=== PATIENT | male | born 1945 | race Caucasian/White ===

== ENCOUNTER 2016-12-09 06:09 | Observation (INO) | payer OTHER ==
[~2016-12-09] VITALS: Ht 177.8 cm; Wt 70.3 kg
--- NOTE | 2016-12-09 06:25 | NUR ---
PT BIBA FOR C/O LOWER BACK PAIN. PER MEDICS, PT TOOK NORCO PRIOR TO GOING TO BED LAST NIGHT. PT ATTEMPTED TO GET OUT OF BED LAST NIGHT AND FELL. PT AROUSABLE TO PHYSICAL STIMULI. PT WILL WAKE UP AND THEN FALL BACK ASLEEP. RESPIRATIONS EVEN AND UNLABORED. BED IN LOW POSITION. CALL LIGHT WITHIN REACH. IN FULL VIEW OF NURSES STATION.
--- NOTE | 2016-12-09 07:09 | NUR ---
X-RAY AT BEDSIDE
[2016-12-09 07:18] LABS: CALCIUM 8.6 mg/dL (8.5-10.1); CARBON DIOXIDE 28.9 mmol/L (21-32); CHLORIDE SERUM 106 mmol/L (98-107); CREATININE SERUM 1.5 mg/dL (0.7-1.3); GLUCOSE SERUM 128 mg/dL (74-106); POTASSIUM SERUM 3.8 mmol/L (3.5-5.1); SODIUM SERUM 140 mmol/L (136-145)
[2016-12-09 07:20] LABS: BASOPHIL % 0.1 % (0-2); PLATELET COUNT 216 x10^3mcL (130-400); RED CELL DISTRIBUTION WIDTH 14.5 % (11.5-14.5)
--- NOTE | 2016-12-09 07:23 | NUR ---
REPORT TAKEN FROM GIOVANI MENDOZA TO ASSUME CARE OF PT. UPON ENTERING THE ROOM, PT IS SLEEPING ON GURNEY PT AROUSEABLE TO STIMULI, PTS BREATHING E/U, SKIN WARM AND DRY TO TOUCH. PT REMAINS ON [employer] FARMING SUPERVISOR WITHIN VIEW OF THE NURSES STATION, WILL CONTINUE TO MONITOR
[2016-12-09 07:24] LABS: ALBUMIN 3.5 g/dL (3.4-5.0); ALKALINE PHOSPHATASE 122 U/L (46-116); ALT/SGPT 36 U/L (16-63); AST/SGOT 32 U/L (15-37); BILIRUBIN TOTAL 0.38 mg/dL (0.20-1.00); CHOLESTEROL 123 mg/dL (<200); TOTAL PROTEIN, SERUM 6.1 g/dL (6.4-8.2)
--- NOTE | 2016-12-09 07:28 | NUR ---
EKG IN PROGRESS AT BEDSIDE.
--- NOTE | 2016-12-09 07:43 | NUR ---
PT TO CT SCAN VIA [facility]
--- NOTE | 2016-12-09 07:53 | NUR ---
PT RETURNED FROM CT SCAN VIA GURNEY, PLACED BACK ON WOOD CABINET FINISHER WITH CALL LIGHT IN REACH AND PT HAS NORMAL SALINE INFUSING WIDE OPEN PER MD ORDERS.
[2016-12-09 07:59] LABS: AMPHETAMINE QUAL UR POSITIVE (NEG <=1000); UA SPECIFIC GRAVITY 1.015 (1.005-1.035); microscopic required? YES; urine erythrocyte NEGATIVE (NEGATIVE)
--- NOTE | 2016-12-09 08:25 | NUR ---
PT MEDICATED WITH 2MG NALOXONE IVP PER MD ORDERS. PT HAD NO REACTION TO MEDICATION. PT REMAINS ON VOLLEYBALL REFEREE WITH CALL LIGHT IN REACH
--- NOTE | 2016-12-09 09:28 | NUR ---
REPORT GIVEN TO RAMIN RN TO ASSUME CARE OF PT PTS PRIMARRY NURSE, ALL QUESTIONS AND CONCERNS ANSWERED.
[2016-12-09 10:14] LABS: FREE T4 1.13 ng/dL (0.76-1.46); FREE THYROXINE INDEX 1.8 ug/dL (1.4-4.5); T4(THYROXINE) 5.3 ug/dL (4.7-13.3)
[2016-12-09 10:19] LABS: T3 TOTAL 0.72 ng/mL
[2016-12-09 10:21] VITALS: BP 115/59
[2016-12-09 11:24] LABS: PHOSPHOROUS 3.4 mg/dL (2.5-4.9)
[2016-12-09 11:25] LABS: CHOLESTEROL/HDL RATIO 1.9
--- NOTE | 2016-12-09 12:48 | NUR ---
AT 1000 - RECEIVED PATIENT FROM ER NURSE. PATIENT ASSISTED FROM GURNEY TO BED; AMBULATED SLOWLY WITH ASSISTANCE. SETTLED IN BED, ORIENTED TO SURROUNDINGS AND PLACED ON CARDIAC MONITORING TELE # 4. ADMITTED WITH ALOC, C/O BACK PAIN SP FALL AT HOME. PATIENT IS VERY DROWSY BUT ABLE TO BE ROUSED. HE IS ABLE TO ANSWER QUESTIONS BUT FALLS ASLEEP WHILE TRYING TO ANSWER QUESTIONS. ORIENTED TO PERSON, TIME AND SITUATION. UNABLE TO OBTAIN FULL HISTORY FROM PATIENT, DUE TO ALOC. VS WNL. AFEBRILE. RESPIRATIONS REGULAR WITH O2 96% ON ROOM AIR. NOTED SOFT TISSUE SWELLING OF L KNEE AND DRY SCABS ON LFA. 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 AT 1015 - ULTRASOUND AT BEDSIDE FOR COROTID U/S. AT 1025 - COMMENCED IV INFUSION OF NS AT 120 ML/HR. PATIENT CONTINUES SLEEPING. MONITORING CLOSELY.
[2016-12-09 12:59] VITALS: BP 106/53
--- NOTE | 2016-12-09 14:06 | NUR ---
PATIENT NOW FULLY AWAKE AND ORIENTED X 4. ROLLING IN BED AND CALLING OUT - "I CAN'T STAND THE PAIN". C/O SEVERE PAIN IN BOTH LEGS AND ARMS. SPOKE WITH DR CAIN. SHE WILL COME TO SEE PATIENT NOW.
[2016-12-09] MEDS ORDERED: NOR10 PO (14:34)
[2016-12-09] MEDS ORDERED: OXYBUTYNIN CHLOR5 MG PO (14:36)
[2016-12-09] MEDS ORDERED: NOR10T PO (14:36)
[2016-12-09] MEDS ORDERED: BACLOFEN10 MG PO (14:37)
[2016-12-09] MEDS ORDERED: NEU300 PO (14:38)
[2016-12-09] MEDS ORDERED: COLCHICINE0.6 M2 PO (14:40)
[2016-12-09] MEDS ORDERED: TERAZOSIN HCL5 MG PO (14:41)
[2016-12-09] MEDS ORDERED: RESTORIL15 MG PO (14:42)
[2016-12-09] MEDS ORDERED: DILANTIN100 MG PO (14:43)
[2016-12-09] MEDS ORDERED: HYDROCHLOROTH12.5 M3 PO (14:46)
--- NOTE | 2016-12-09 15:39 | NUR ---
AT 1420 - DR CAIN AT BEDSIDE. RECEIVED NEW ORDERS. PATIENT REQUESTED THAT I CALL [facility], [facility] TEL; [phone] TO NOTIFY THEM THAT HE IS IN [facility]. DONE. AT 1425 - MEDICATED WITH IV TORADOL AND DECADRON PER EMAR. K-PAD APPLIED TO L KNEE. AT 1440 - MEDICATED WITH IV ATIVAN 1 MG PER EMAR/NEW ORDER. PATIENT SPOKE WITH BANK SALES AND SERVICE MANAGER AT [facility]. AT 1515 - PATIENT APPEARS MORE COMFORTABLE AT THIS TIME.
--- NOTE | 2016-12-09 16:37 | NUR ---
LFA PHOTO DOCUMENTED.
--- NOTE | 2016-12-09 16:46 | NUR ---
RECEIVED CALL FROM PATIENT'S [facility]EP[facility] - TEL: . PATIENT HAS HAD BACK X-RAY.
[2016-12-09 18:52] VITALS: BP 111/60
--- NOTE | 2016-12-09 19:04 | NUR ---
PATIENT HAS BEEN SLEEPING SINCE RECEIVING PAIN MEDICATION, BUT ROUSABLE. WHEN AWAKE PATIENT IS ORIENTED. PATIENT MOVING IN BED. VSS AND WNL. IV INFUSION REMAINS AT 120ML/HR. K-PAD TO L KNEE. HAS TAKEN PO FLUIDS BUT HAS NOT EATEN. WILL ENDORSE CARE TO NIGHT NURSE.
--- NOTE | 2016-12-09 20:15 | NUR ---
PT. SLEEPING, EASY TO WAKE. ORIENTED X4 AND APPROPRIATE WHEN AWAKENED. ABLE TO FOLLOW COMMANDS. SPEECH SLOW AT THIS TIME. BREATH SOUNDS CLEAR THROUGHOUT LUNG BOWEN, RESP. EVEN, UNLABORED. NSR W/ 1ST DEGREE BBB. DENIES CHESTPAIN OR DISCOMFORT. IVF NS INFUSING WELL. LT. KNEE SWOLLEN. PEDAL PULSES MODERATE. ABLE TO MOVE ALL EXTREMITIES. ABD. SOFT AND ROUND, BOWEL SOUNDS ACTIVE. DENIES NAUSEA, DENIES ABD. PAIN. LFA W/ DRIED, SCABBED AREAS, SKYLER. NO DRAINAGE NOTED. CALL LIGHT WITHIN REACH.
--- NOTE | 2016-12-09 23:35 | NUR ---
PT. C/O PAIN IN LT. HAND. RECEIVED PRN NORCO EARLIER BUT IS COMPLAINING THAT PAIN IS GETTING WORST. PRN TORDOL GIVEN. WILL MONITOR EFFECTIVENESS FOR PAIN RELIEF.
--- NOTE | 2016-12-10 04:07 | NUR ---
PT. BETWEEN SLEEP AND WAKE THROUGHOUT NIGHT. DOZING NOW. IVF INFUSING WELL. CALL LIGHT REMAINS WITHIN REACH.
[2016-12-10 06:07] LABS: BASOPHIL % 0.3 % (0-2); PLATELET COUNT 204 x10^3mcL (130-400)
[2016-12-10 06:34] LABS: CARBON DIOXIDE 26.5 mmol/L (21-32); CHLORIDE SERUM 109 mmol/L (98-107); CREATININE SERUM 1.4 mg/dL (0.7-1.3); GLUCOSE SERUM 105 mg/dL (74-106); MAGNESIUM 2.1 mg/dL (1.8-2.4); PHOSPHOROUS 3.2 mg/dL (2.5-4.9); POTASSIUM SERUM 4.4 mmol/L (3.5-5.1); SODIUM SERUM 140 mmol/L (136-145)
[2016-12-10 06:47] VITALS: BP 105/57
--- NOTE | 2016-12-10 07:41 | NUR ---
RECEIVED PT LAYING IN BED AWAKE AND ALERT. AAOx4. ID BAND ON AND VERIFIED. IV SITE PATENT AND INFUSING WELL, IV TUBING LABELLED PROPERLY. INFORMATION BOARD UPDATED. DENIES PAIN AT THIS TIME. NO APPARENT SIGNS OF ACUTE DISTRESS. ANXIOUS TO RETURN HOME. EXPLAINED TO PT. THAT THE DOCTOR WOULD BE IN TO DISCUSS THE TREATMENT PLAN TO HIM AND DECIDE WHEN IT IS SAFE FOR HIM TO LEAVE. PT APPEARED RECEPTIVE. CALL LIGHT WITHIN REACH. ENCOURAGED TO ASK FOR ASSISTANCE. WILL CONTINUE TO MONITOR
[2016-12-10] MEDS ORDERED: FLORASTOR1 CAP PO (08:18)
[2016-12-10] MEDS ORDERED: LEVAQUIN250 M1 PO (08:18)
[2016-12-10 08:41] VITALS: BP 105/57
--- NOTE | 2016-12-10 08:58 | NUR ---
PT ATTEMPTED TO LEAVE THE FACILITY AMA. AFTER PT TEACHING AND ENCOURAGEMENT, THE PT WAITED TO SPEAK TO DR. MAST WHO ULTIMATELY DISCHARGED HIM. WENT OVER DISCHARGE PAPERWORK AND PT TEACHING ABOUT MEDICATION AND VISIT REPORT. IV ACCESS REMOVED, PT TOLERATED IT WELL. JUICE PACKAGING MACHINES SETTER NOTIFIED. CAB RIDE ARRANGED. ARRANGED FOR A LOANER WALKER FOR THE PT TO AMBULATE TO HIS APARTMENT, AND THE RIPENING ROOM ATTENDANT WILL RETURN THE WALKER. PT DENIES PAIN. NO APPARENT SIGNS OF ACUTE DISTRESS NOTED. PT WAS ESCORTED DOWN TO THE HOSPITAL ENTRANCE AND INTO [place] BY 2 NURSING STAFF. TELE BOX RETURNED TO CRUTCHER HELPER STATION
== END 2016-12-10 09:00 | disposition home or self-care (01) | DRG 917 ==
LOC: ED 06:09 → DU 08:49
PROVIDERS: Emergency Medicine; ADMIT Family Medicine
DX: T43.621A Poisoning by amphetamines, accidental (unintentional), initial encounter (principal); G92 Toxic encephalopathy; N17.0 Acute kidney failure with tubular necrosis; N39.0 Urinary tract infection, site not specified; I95.9 Hypotension, unspecified; M54.5 Low back pain; G89.29 Other chronic pain; G62.9 Polyneuropathy, unspecified; G40.909 Epilepsy, unspecified, not intractable, without status epilepticus; N40.1 Benign prostatic hyperplasia with lower urinary tract symptoms; R33.8 Other retention of urine; D64.9 Anemia, unspecified; M10.9 Gout, unspecified; F15.10 Other stimulant abuse, uncomplicated; F17.210 Nicotine dependence, cigarettes, uncomplicated; Z79.891 Long term (current) use of opiate analgesic; Z68.22 Body mass index [BMI] 22.0-22.9, adult; Y92.003 Bedroom of unspecified non-institutional (private) residence as the place of occurrence of the external cause
CPT/HCPCS: 80307; 83880; 84439; G0378; G0480; J0696; J1100; J1165; J1885; J2060; J2310; J7030; Q0092

== ENCOUNTER 2017-10-31 11:09 | Inpatient (IN) | payer OTHER ==
[~2017-10-31] VITALS: Ht 175.3 cm; Wt 81.7 kg
[~2017-10-31 11:09] MED LIST: BACLOFEN10 MG PO; COLCHICINE0.6 M2 PO; DILANTIN100 MG PO; FLORASTOR1 CAP PO; HYDROCHLOROTH12.5 M3 PO; LEVAQUIN250 M1 PO; NEU300 PO; NOR10 PO; NOR10T PO; OXYBUTYNIN CHLOR5 MG PO; RESTORIL15 MG PO; TERAZOSIN HCL5 MG PO
[2017-10-31 12:44] LABS: BASOPHIL % 0.5 % (0-2); PLATELET COUNT 302 x10^3mcL (130-400)
[2017-10-31 12:45] LABS: RED CELL DISTRIBUTION WIDTH 17.8 % (11.5-14.5)
[2017-10-31 15:02] LABS: CALCIUM 9.5 mg/dL (8.5-10.1); CARBON DIOXIDE 20.9 mmol/L (21-32); CHLORIDE SERUM 99 mmol/L (98-107); CREATININE SERUM 2.8 mg/dL (0.7-1.3); GLUCOSE SERUM 113 mg/dL (74-106); POTASSIUM SERUM 4.3 mmol/L (3.5-5.1); SODIUM SERUM 134 mmol/L (136-145)
[2017-10-31 15:14] LABS: ALBUMIN 3.4 g/dL (3.4-5.0); ALKALINE PHOSPHATASE 127 U/L (46-116); ALT/SGPT 27 U/L (16-63); AST/SGOT 27 U/L (15-37); BILIRUBIN TOTAL 0.24 mg/dL (0.20-1.00)
[2017-10-31] MEDS ORDERED: DILAUDID2 MG PO (16:16)
[2017-10-31] MEDS ORDERED: MORPHINE SULFAT15 MG PO (16:16)
[2017-10-31] MEDS ORDERED: TRAZODONE50 M1 PO (16:17)
[2017-10-31] MEDS ORDERED: D3-50001 TAB PO (16:17)
[2017-10-31] MEDS ORDERED: HYDRALAZINE HY100 MG PO (16:18)
[2017-10-31] MEDS ORDERED: CLARITIN10 MG PO (16:18)
[2017-10-31] MEDS ORDERED: NATURAL IRON65 MG PO (16:18)
[2017-10-31] MEDS ORDERED: SENOKOT8.6 MG PO (16:19)
[2017-10-31] MEDS ORDERED: ALLOPURINOL100 MG PO (16:19)
[2017-10-31] MEDS ORDERED: NEU300 PO (16:19)
[2017-10-31] MEDS ORDERED: KEPPRA500 MG PO (16:19)
[2017-10-31] MEDS ORDERED: DOXYCYCLINE HY100 MG PO (16:20)
[2017-10-31] MEDS ORDERED: TERAZOSIN HYDROC5 MG PO (16:20)
[2017-10-31] MEDS ORDERED: LEVOTHYROXINE0.05 M2 PO (16:20)
[2017-10-31] MEDS ORDERED: GOOD SENSE OMEP20 MG PO (16:20)
[2017-10-31] MEDS ORDERED: COLCHICINE0.6 M1 PO (16:21)
[2017-10-31 16:30] LABS: T3 TOTAL 0.56 ng/mL
[2017-10-31 16:53] VITALS: BP 120/60
[2017-10-31 17:07] LABS: CHOLESTEROL/HDL RATIO 2.2; MAGNESIUM 1.6 mg/dL (1.8-2.4); PHOSPHOROUS 4.4 mg/dL (2.5-4.9)
[2017-10-31 17:18] LABS: FREE T4 1.33 ng/dL (0.76-1.46); T4(THYROXINE) 5.3 ug/dL (4.7-13.3)
[2017-10-31 22:01] VITALS: BP 131/65
[2017-11-01 04:34] LABS: microscopic required? NO
[2017-11-01 05:18] LABS: urine erythrocyte NEGATIVE (NEGATIVE)
[2017-11-01 05:22] LABS: AMPHETAMINE QUAL UR POSITIVE (NEG <=1000)
[2017-11-01 06:02] VITALS: BP 111/56
[2017-11-01 08:09] LABS: CALCIUM 9.1 mg/dL (8.5-10.1); CHLORIDE SERUM 102 mmol/L (98-107); CREATININE SERUM 2.6 mg/dL (0.7-1.3); GLUCOSE SERUM 104 mg/dL (74-106); MAGNESIUM 1.7 mg/dL (1.8-2.4); PHOSPHOROUS 4.8 mg/dL (2.5-4.9); POTASSIUM SERUM 4.4 mmol/L (3.5-5.1); SODIUM SERUM 135 mmol/L (136-145)
[2017-11-01 08:14] LABS: BASOPHIL % 0.2 % (0-2); PLATELET COUNT 275 x10^3mcL (130-400); RED CELL DISTRIBUTION WIDTH 17.4 % (11.5-14.5)
[2017-11-01 09:43] VITALS: BP 119/56
[2017-11-01 13:02] VITALS: BP 115/63
[2017-11-01 18:06] VITALS: BP 126/61
[2017-11-01 21:45] VITALS: BP 111/62
[2017-11-02 06:03] LABS: BASOPHIL % 0.6 % (0-2); PLATELET COUNT 258 x10^3mcL (130-400)
[2017-11-02 06:45] LABS: CALCIUM 8.7 mg/dL (8.5-10.1); CARBON DIOXIDE 28.1 mmol/L (21-32); CHLORIDE SERUM 103 mmol/L (98-107); CREATININE SERUM 2.6 mg/dL (0.7-1.3); GLUCOSE SERUM 89 mg/dL (74-106); MAGNESIUM 1.7 mg/dL (1.8-2.4); POTASSIUM SERUM 4.9 mmol/L (3.5-5.1); SODIUM SERUM 137 mmol/L (136-145)
[2017-11-02 09:22] VITALS: BP 119/55
[2017-11-02 13:20] VITALS: BP 119/60
[2017-11-02 16:50] VITALS: BP 119/60
[2017-11-02 17:39] VITALS: BP 108/50
== END 2017-11-02 18:40 | DRG 559 ==
LOC: ED 11:09 → DU 15:29
PROVIDERS: Emergency Medicine; Family Medicine
DX: T84.54XA Infection and inflammatory reaction due to internal left knee prosthesis, initial encounter (principal); N17.0 Acute kidney failure with tubular necrosis; E87.1 Hypo-osmolality and hyponatremia; M86.8X8 Other osteomyelitis, other site; I42.2 Other hypertrophic cardiomyopathy; I10 Essential (primary) hypertension; Z96.652 Presence of left artificial knee joint; Z96.651 Presence of right artificial knee joint; Y79.2 Prosthetic and other implants, materials and accessory orthopedic devices associated with adverse incidents; Y83.4 Other reconstructive surgery as the cause of abnormal reaction of the patient, or of later complication, without mention of misadventure at the time of the procedure; M54.5 Low back pain; F41.9 Anxiety disorder, unspecified; F32.9 Major depressive disorder, single episode, unspecified; E86.0 Dehydration; E03.9 Hypothyroidism, unspecified; J44.9 Chronic obstructive pulmonary disease, unspecified; G89.4 Chronic pain syndrome; N40.0 Benign prostatic hyperplasia without lower urinary tract symptoms; M10.9 Gout, unspecified; F17.210 Nicotine dependence, cigarettes, uncomplicated; Z60.2 Problems related to living alone; K59.00 Constipation, unspecified; G62.9 Polyneuropathy, unspecified; E83.42 Hypomagnesemia; Z79.899 Other long term (current) drug therapy; Y92.009 Unspecified place in unspecified non-institutional (private) residence as the place of occurrence of the external cause
CPT/HCPCS: 83880; 84439; 97110-GP; 97530-GP; J0780; J2405; J3010; J7030; Q0092

== ENCOUNTER 2018-01-09 17:31 | Emergency (ER) | payer OTHER ==
[~2018-01-09] VITALS: Ht 172.7 cm; Wt 87.1 kg
[~2018-01-09 17:31] MED LIST changes: +ALLOPURINOL100 MG PO; +CLARITIN10 MG PO; +COLCHICINE0.6 M1 PO; +D3-50001 TAB PO; +DILAUDID2 MG PO; +DOXYCYCLINE HY100 MG PO; +GOOD SENSE OMEP20 MG PO; +HYDRALAZINE HY100 MG PO; +KEPPRA500 MG PO; +LEVOTHYROXINE0.05 M2 PO; +MORPHINE SULFAT15 MG PO; +NATURAL IRON65 MG PO; +SENOKOT8.6 MG PO; +TERAZOSIN HYDROC5 MG PO; +TRAZODONE50 M1 PO
[2018-01-09 18:02] VITALS: Ht 172.7 cm; Wt 87.1 kg
[2018-01-09 22:27] VITALS: BP 149/80
== END 2018-01-09 22:27 | disposition home or self-care (01) ==
LOC: ED 17:31
DX: M54.42 Lumbago with sciatica, left side (principal); G89.29 Other chronic pain; M25.562 Pain in left knee; J45.909 Unspecified asthma, uncomplicated; I10 Essential (primary) hypertension
CPT/HCPCS: J1885; Q0092

== ENCOUNTER 2018-11-11 22:47 | Emergency (ER) | payer OTHER ==
[~2018-11-11] VITALS: Ht 172.7 cm; Wt 95.3 kg
[2018-11-11 22:53] VITALS: Ht 172.7 cm; Wt 95.3 kg
[2018-11-11] MEDS ORDERED: KEPPRA500 MG PO (23:37)
[2018-11-11] MEDS ORDERED: FLUOXETINE HYDR20 M2 PO (23:39)
[2018-11-11] MEDS ORDERED: METOPROLOL SUCC50 M2 PO (23:42)
[2018-11-11] MEDS ORDERED: PAROXETINE HCL20 M1 PO (23:42)
[2018-11-12 00:22] VITALS: BP 133/78
== END 2018-11-12 00:18 | disposition home or self-care (01) ==
LOC: ED 22:47
DX: S80.02XA Contusion of left knee, initial encounter (principal); M25.512 Pain in left shoulder; M25.552 Pain in left hip; J45.909 Unspecified asthma, uncomplicated; I10 Essential (primary) hypertension; G89.29 Other chronic pain; F41.9 Anxiety disorder, unspecified; F32.9 Major depressive disorder, single episode, unspecified; Z98.890 Other specified postprocedural states; W18.11XA Fall from or off toilet without subsequent striking against object, initial encounter; Y93.89 Activity, other specified; Y92.091 Bathroom in other non-institutional residence as the place of occurrence of the external cause; Y99.8 Other external cause status
CPT/HCPCS: J3010

== ENCOUNTER 2018-11-12 18:22 | Emergency (ER) | payer OTHER ==
[~2018-11-12] VITALS: Ht 175.3 cm; Wt 86.2 kg
[~2018-11-12 18:22] MED LIST changes: +FLUOXETINE HYDR20 M2 PO; +METOPROLOL SUCC50 M2 PO; +PAROXETINE HCL20 M1 PO
[2018-11-12 18:33] VITALS: Ht 175.3 cm; Wt 86.2 kg
[2018-11-12 19:40] VITALS: BP 143/80
== END 2018-11-12 19:41 | disposition home or self-care (01) ==
LOC: ED 18:22
DX: G89.29 Other chronic pain (principal); M25.562 Pain in left knee; J45.909 Unspecified asthma, uncomplicated; I10 Essential (primary) hypertension; F41.9 Anxiety disorder, unspecified; F32.9 Major depressive disorder, single episode, unspecified; Z98.890 Other specified postprocedural states
CPT/HCPCS: J3010

== ENCOUNTER 2018-11-16 15:40 | Emergency (ER) | payer OTHER ==
[~2018-11-16] VITALS: Ht 175.3 cm; Wt 87.1 kg
[2018-11-16 15:48] VITALS: Ht 175.3 cm; Wt 87.1 kg
[2018-11-16 18:22] VITALS: BP 133/56
== END 2018-11-16 18:22 | disposition home or self-care (01) ==
LOC: ED 15:40
DX: S49.91XA Unspecified injury of right shoulder and upper arm, initial encounter (principal); J45.909 Unspecified asthma, uncomplicated; I10 Essential (primary) hypertension; M10.9 Gout, unspecified; F32.9 Major depressive disorder, single episode, unspecified; F41.9 Anxiety disorder, unspecified; G89.29 Other chronic pain; W01.0XXA Fall on same level from slipping, tripping and stumbling without subsequent striking against object, initial encounter; Y93.89 Activity, other specified; Y92.89 Other specified places as the place of occurrence of the external cause; Y99.8 Other external cause status
CPT/HCPCS: J1885; Q0092

== ENCOUNTER 2018-11-22 03:51 | Inpatient (IN) | payer OTHER ==
[~2018-11-22] VITALS: Ht 175.3 cm; Wt 89.8 kg
[2018-11-22 04:47] LABS: ALKALINE PHOSPHATASE 220 U/L (46-116); ALT/SGPT 39 U/L (16-63); AST/SGOT 31 U/L (15-37); BILIRUBIN TOTAL 0.8 mg/dL (0.20-1.00); CALCIUM 8.3 mg/dL (8.5-10.1); CARBON DIOXIDE 18.8 mmol/L (21-32); CHLORIDE SERUM 94 mmol/L (98-107); CREATININE SERUM 3.4 mg/dL (0.7-1.3); GLUCOSE SERUM 133 mg/dL (74-106); POTASSIUM SERUM 3.7 mmol/L (3.5-5.1); SODIUM SERUM 127 mmol/L (136-145); TOTAL PROTEIN, SERUM 6.8 g/dL (6.4-8.2)
[2018-11-22 04:51] LABS: BASOPHIL % 0.3 % (0-2)
[2018-11-22 04:59] LABS: PLATELET COUNT 482 x10^3mcL (130-400); RED CELL DISTRIBUTION WIDTH 14.8 % (11.5-14.5)
[2018-11-22 05:02] LABS: ALBUMIN 2.2 g/dL (3.4-5.0)
[2018-11-22 05:36] LABS: UA SPECIFIC GRAVITY <=1.005 (1.005-1.035); microscopic required? YES; urine erythrocyte 1+ (NEGATIVE)
[2018-11-22 11:13] VITALS: BP 133/68
[2018-11-22 17:49] VITALS: BP 146/73
[2018-11-22 21:08] VITALS: BP 155/68
[2018-11-22 21:30] VITALS: BP 132/71
[2018-11-23 05:36] VITALS: BP 144/73
[2018-11-23 07:23] LABS: RED CELL DISTRIBUTION WIDTH 15.1 % (11.5-14.5)
[2018-11-23 07:24] LABS: PLATELET COUNT 572 x10^3mcL (130-400)
[2018-11-23 07:32] LABS: ALKALINE PHOSPHATASE 164 U/L (46-116); ALT/SGPT 31 U/L (16-63); AST/SGOT 25 U/L (15-37); BILIRUBIN TOTAL 0.6 mg/dL (0.20-1.00); CALCIUM 8.2 mg/dL (8.5-10.1); CARBON DIOXIDE 18.4 mmol/L (21-32); CHLORIDE SERUM 104 mmol/L (98-107); GLUCOSE SERUM 116 mg/dL (74-106); MAGNESIUM 2.1 mg/dL (1.8-2.4); SODIUM SERUM 135 mmol/L (136-145); TOTAL PROTEIN, SERUM 6.3 g/dL (6.4-8.2)
[2018-11-23 07:37] LABS: POTASSIUM SERUM 4.1 mmol/L (3.5-5.1)
[2018-11-23 10:00] VITALS: BP 144/69
[2018-11-23 11:44] LABS: BAND NEUTROPHIL 15 % (0-10); BASOPHIL 0 % (0-2); METAMYELOCTE 2 % (0-2); MONOCYTE 5 % (0-7); MYELOCYTE 2 % (0-2); SEGMENTED NEUTROPHILS 73 % (37-75); rbc morphology (normal/abnorm) ABNORMAL (NORMAL); tear drop cell (dacryocyte) 1+
[2018-11-23 11:45] LABS: PLATELET MORPHOLOGY PLATELETS INCREASED; burr cell (echinocyte) 1+
[2018-11-23 14:59] LABS: microscopic required? YES; urine erythrocyte 2+ (NEGATIVE)
[2018-11-23 16:35] VITALS: BP 137/67
[2018-11-23 17:25] VITALS: Ht 175.3 cm; Wt 89.8 kg
[2018-11-23 21:28] VITALS: BP 145/65
[2018-11-24 06:23] VITALS: BP 151/82
[2018-11-24 08:21] LABS: BASOPHIL % 0.1 % (0-2)
[2018-11-24 08:30] LABS: PLATELET COUNT 525 x10^3mcL (130-400); RED CELL DISTRIBUTION WIDTH 14.8 % (11.5-14.5)
[2018-11-24 08:36] LABS: CALCIUM 8.3 mg/dL (8.5-10.1); CARBON DIOXIDE 18.7 mmol/L (21-32); CHLORIDE SERUM 105 mmol/L (98-107); CREATININE SERUM 2.6 mg/dL (0.7-1.3); GLUCOSE SERUM 105 mg/dL (74-106); PHOSPHOROUS 4.5 mg/dL (2.5-4.9); POTASSIUM SERUM 3.8 mmol/L (3.5-5.1); SODIUM SERUM 136 mmol/L (136-145)
[2018-11-24 09:06] VITALS: BP 155/81
[2018-11-24 16:39] VITALS: BP 149/73
[2018-11-24 20:46] VITALS: BP 147/78
[2018-11-25 05:37] VITALS: BP 151/80
[2018-11-25 06:11] LABS: ALKALINE PHOSPHATASE 133 U/L (46-116); ALT/SGPT 20 U/L (16-63); AST/SGOT 16 U/L (15-37); BILIRUBIN TOTAL 0.4 mg/dL (0.20-1.00); CHLORIDE SERUM 105 mmol/L (98-107); CREATININE SERUM 2.4 mg/dL (0.7-1.3); GLUCOSE SERUM 104 mg/dL (74-106); MAGNESIUM 1.7 mg/dL (1.8-2.4); PHOSPHOROUS 4.3 mg/dL (2.5-4.9); POTASSIUM SERUM 3.6 mmol/L (3.5-5.1); SODIUM SERUM 137 mmol/L (136-145)
[2018-11-25 06:12] LABS: TOTAL PROTEIN, SERUM 5.9 g/dL (6.4-8.2)
[2018-11-25 07:46] LABS: BASOPHIL % 0 % (0-2); RED CELL DISTRIBUTION WIDTH 14.9 % (11.5-14.5)
[2018-11-25 08:17] LABS: PLATELET COUNT 599 x10^3mcL (130-400)
[2018-11-25 13:00] VITALS: BP 145/77
[2018-11-25 17:48] VITALS: BP 155/79
[2018-11-25 18:00] VITALS: BP 159/77
[2018-11-25 20:53] VITALS: BP 158/85
[2018-11-26 05:37] VITALS: BP 134/72
[2018-11-26 06:54] LABS: ALKALINE PHOSPHATASE 131 U/L (46-116); ALT/SGPT 21 U/L (16-63); AST/SGOT 17 U/L (15-37); BILIRUBIN DIRECT 0.26 mg/dL (0.0-0.2); BILIRUBIN TOTAL 0.6 mg/dL (0.20-1.00); CALCIUM 7.6 mg/dL (8.5-10.1); CARBON DIOXIDE 22.7 mmol/L (21-32); CHLORIDE SERUM 102 mmol/L (98-107); CREATININE SERUM 2.2 mg/dL (0.7-1.3); GLUCOSE SERUM 106 mg/dL (74-106); POTASSIUM SERUM 3.3 mmol/L (3.5-5.1); SODIUM SERUM 135 mmol/L (136-145)
[2018-11-26 06:56] LABS: ALKALINE PHOSPHATASE 134 U/L (46-116); ALT/SGPT 20 U/L (16-63); AST/SGOT 19 U/L (15-37); BILIRUBIN TOTAL 0.6 mg/dL (0.20-1.00); CALCIUM 7.7 mg/dL (8.5-10.1); CHLORIDE SERUM 102 mmol/L (98-107); CREATININE SERUM 2.2 mg/dL (0.7-1.3); GLUCOSE SERUM 107 mg/dL (74-106); POTASSIUM SERUM 3.4 mmol/L (3.5-5.1); SODIUM SERUM 134 mmol/L (136-145)
[2018-11-26 06:57] LABS: TOTAL PROTEIN, SERUM 5.9 g/dL (6.4-8.2)
[2018-11-26 07:52] LABS: RED CELL DISTRIBUTION WIDTH 15.2 % (11.5-14.5)
[2018-11-26 07:53] LABS: PLATELET COUNT 598 x10^3mcL (130-400)
[2018-11-26 09:46] VITALS: BP 134/71
[2018-11-26 14:21] LABS: BAND NEUTROPHIL 12 % (0-10); MONOCYTE 5 % (0-7); PLATELET MORPHOLOGY PLATELETS INCREASED; SEGMENTED NEUTROPHILS 79 % (37-75); rbc morphology (normal/abnorm) NORMAL (NORMAL)
[2018-11-26 15:54] VITALS: BP 157/76
[2018-11-26 21:22] VITALS: BP 141/72
[2018-11-27 05:45] VITALS: BP 149/75
[2018-11-27 07:04] LABS: CALCIUM 7.6 mg/dL (8.5-10.1); CARBON DIOXIDE 26.1 mmol/L (21-32); CHLORIDE SERUM 104 mmol/L (98-107); CREATININE SERUM 1.9 mg/dL (0.7-1.3); GLUCOSE SERUM 108 mg/dL (74-106); MAGNESIUM 1.3 mg/dL (1.8-2.4); POTASSIUM SERUM 3.2 mmol/L (3.5-5.1); SODIUM SERUM 138 mmol/L (136-145)
[2018-11-27 07:32] LABS: BASOPHIL % 0.1 % (0-2); RED CELL DISTRIBUTION WIDTH 14.4 % (11.5-14.5)
[2018-11-27 07:33] LABS: PLATELET COUNT 493 x10^3mcL (130-400)
[2018-11-27 09:28] VITALS: BP 153/77
[2018-11-27 17:16] VITALS: BP 120/78
[2018-11-27 21:04] VITALS: BP 152/77
[2018-11-28 05:30] VITALS: BP 150/67
[2018-11-28 07:10] LABS: CARBON DIOXIDE 29.1 mmol/L (21-32); CHLORIDE SERUM 104 mmol/L (98-107); CREATININE SERUM 1.8 mg/dL (0.7-1.3); GLUCOSE SERUM 100 mg/dL (74-106); MAGNESIUM 1.7 mg/dL (1.8-2.4); PHOSPHOROUS 3.3 mg/dL (2.5-4.9); POTASSIUM SERUM 3.4 mmol/L (3.5-5.1); SODIUM SERUM 138 mmol/L (136-145)
[2018-11-28 07:23] LABS: PLATELET COUNT 465 x10^3mcL (130-400); RED CELL DISTRIBUTION WIDTH 14.5 % (11.5-14.5)
[2018-11-28 10:30] VITALS: BP 130/70
[2018-11-28 12:10] LABS: BAND NEUTROPHIL 1 % (0-10); BASOPHIL 0 % (0-2); MONOCYTE 7 % (0-7); PLATELET MORPHOLOGY PLATELETS INCREASED; SEGMENTED NEUTROPHILS 88 % (37-75)
[2018-11-28 12:11] LABS: rbc morphology (normal/abnorm) ABNORMAL (NORMAL)
[2018-11-28] MEDS ORDERED: MEROPENEM1 GM IV (14:57)
[2018-11-28 18:05] VITALS: BP 120/72
[2018-11-28 21:35] VITALS: BP 140/71
[2018-11-29 05:33] VITALS: BP 156/74
[2018-11-29 07:18] LABS: CALCIUM 8.2 mg/dL (8.5-10.1); CHLORIDE SERUM 104 mmol/L (98-107); CREATININE SERUM 1.8 mg/dL (0.7-1.3); GLUCOSE SERUM 98 mg/dL (74-106); POTASSIUM SERUM 3.8 mmol/L (3.5-5.1); SODIUM SERUM 138 mmol/L (136-145)
[2018-11-29 09:52] VITALS: BP 137/72
[2018-11-29 17:00] VITALS: BP 150/73
[2018-11-29 22:08] VITALS: BP 143/66
[2018-11-30 05:34] VITALS: BP 153/81
[2018-11-30 06:27] LABS: CALCIUM 7.9 mg/dL (8.5-10.1); CARBON DIOXIDE 27.7 mmol/L (21-32); CHLORIDE SERUM 104 mmol/L (98-107); CREATININE SERUM 1.7 mg/dL (0.7-1.3); GLUCOSE SERUM 95 mg/dL (74-106); POTASSIUM SERUM 4.4 mmol/L (3.5-5.1); SODIUM SERUM 138 mmol/L (136-145)
[2018-11-30 10:38] VITALS: BP 135/79
[2018-11-30 15:12] VITALS: BP 135/79
[2018-11-30 17:09] VITALS: BP 121/76
[2018-11-30 21:44] VITALS: BP 131/68
[2018-12-01 06:49] VITALS: BP 152/80
[2018-12-01 07:55] LABS: CALCIUM 8.1 mg/dL (8.5-10.1); CARBON DIOXIDE 23.6 mmol/L (21-32); CHLORIDE SERUM 105 mmol/L (98-107); CREATININE SERUM 1.8 mg/dL (0.7-1.3); GLUCOSE SERUM 113 mg/dL (74-106); MAGNESIUM 1.8 mg/dL (1.8-2.4); POTASSIUM SERUM 4.1 mmol/L (3.5-5.1); SODIUM SERUM 138 mmol/L (136-145)
[2018-12-01 10:22] VITALS: BP 155/75
[2018-12-01 17:20] VITALS: BP 136/72
[2018-12-01 22:05] VITALS: BP 121/63
[2018-12-02 05:59] VITALS: BP 138/70
[2018-12-02 08:51] VITALS: BP 139/68
[2018-12-02 09:17] LABS: BASOPHIL % 0.2 % (0-2); PLATELET COUNT 372 x10^3mcL (130-400); RED CELL DISTRIBUTION WIDTH 14.4 % (11.5-14.5)
[2018-12-02 10:06] LABS: CALCIUM 8.6 mg/dL (8.5-10.1); CARBON DIOXIDE 25.2 mmol/L (21-32); CHLORIDE SERUM 103 mmol/L (98-107); CREATININE SERUM 1.8 mg/dL (0.7-1.3); GLUCOSE SERUM 117 mg/dL (74-106); MAGNESIUM 1.7 mg/dL (1.8-2.4); PHOSPHOROUS 3.4 mg/dL (2.5-4.9); POTASSIUM SERUM 4.4 mmol/L (3.5-5.1); SODIUM SERUM 137 mmol/L (136-145)
[2018-12-02 18:07] VITALS: BP 130/86
== END 2018-12-02 19:48 | disposition left against medical advice (07) | DRG 871 ==
LOC: ED 03:51 → DU 06:12 → MU 06:12
PROVIDERS: Emergency Medicine; Internal Medicine; Internal Medicine Nephrology; ADMIT Internal Medicine Pulmonary Disease
DX: A41.9 Sepsis, unspecified organism (principal); N17.0 Acute kidney failure with tubular necrosis; A09 Infectious gastroenteritis and colitis, unspecified; E44.0 Moderate protein-calorie malnutrition; E87.2 Acidosis; E87.1 Hypo-osmolality and hyponatremia; E86.0 Dehydration; I10 Essential (primary) hypertension; M54.5 Low back pain; G89.29 Other chronic pain; M10.9 Gout, unspecified; Z96.653 Presence of artificial knee joint, bilateral; Z68.28 Body mass index [BMI] 28.0-28.9, adult; Z87.828 Personal history of other (healed) physical injury and trauma; E87.6 Hypokalemia
CPT/HCPCS: 87046; 87046-59; 90658; 97110-GP; 97112-GP; 97530-GP; J0696; J2185; J2270; J2405; J2916; J3475; J3490; J7030; J7040

== ENCOUNTER 2018-12-03 19:26 | Inpatient (IN) | payer OTHER ==
[~2018-12-03] VITALS: Ht 175.3 cm; Wt 87.1 kg
[~2018-12-03 19:26] MED LIST changes: +MEROPENEM1 GM IV
[2018-12-03 19:33] VITALS: Ht 175.3 cm; Wt 87.1 kg
--- NOTE | 2018-12-03 19:40 | NUR ---
PT BIB WHEELCHAIR AND PLACED IN BED. PT AAOX4 WITH C/O DIARRHEA STARTING UP THIS AM. PT ALSO WITH C/O ANXIETY, STATING 'I HAVN'T SLEPT IN 3 DAYS'. PT STATED HE LEFT YESTERDAY FROM HERE AFTER BEING ADMITTED FOR 11 DAYS FOR THE SAME ISSUE. VISITOR AT BEDSIDE.
--- NOTE | 2018-12-03 20:15 | NUR ---
PT RESTING IN BED WITH AT BEDSIDE WITH NO SIGNS OF DISTRESS AT THIS TIME.
[2018-12-03 20:22] LABS: BASOPHIL % 0.4 % (0-2)
[2018-12-03 20:28] LABS: CALCIUM 8.9 mg/dL (8.5-10.1); CARBON DIOXIDE 25.6 mmol/L (21-32); CHLORIDE SERUM 102 mmol/L (98-107); GLUCOSE SERUM 106 mg/dL (74-106); POTASSIUM SERUM 4.4 mmol/L (3.5-5.1); SODIUM SERUM 139 mmol/L (136-145)
[2018-12-03 20:30] LABS: PLATELET COUNT 434 x10^3mcL (130-400); RED CELL DISTRIBUTION WIDTH 14.7 % (11.5-14.5)
[2018-12-03 20:33] LABS: ALKALINE PHOSPHATASE 161 U/L (46-116); ALT/SGPT 45 U/L (16-63); AST/SGOT 40 U/L (15-37); BILIRUBIN TOTAL 0.4 mg/dL (0.20-1.00); TOTAL PROTEIN, SERUM 7.2 g/dL (6.4-8.2)
[2018-12-03 20:36] LABS: ALBUMIN 2.8 g/dL (3.4-5.0)
--- NOTE | 2018-12-03 21:15 | NUR ---
PT RESTING IN BED WITH EYES CLOSED WITH NO SIGNS OF DISTRESS AT THIS TIME.
--- NOTE | 2018-12-03 22:25 | NUR ---
REPORT GIVEN TO YAMIL MENDOAZ.
--- NOTE | 2018-12-03 22:37 | NUR ---
[facility] ACCOM[facility] BY RN AND TRANSPORTER. PT A/A/O X 4, CALM, COOPERATIVE, SEIZURE PRECAUTIONS IN PLACE. 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 ON TELE # 5, NSR, HR 82, DENIES CHEST PAIN OR DISCOMFORT AT THIS TIME. RUL AND BLL CLEAR, SAMANTHA EXP WHEEZING, CHEST RISING EVENLY, R/A, 96%, NO ACUTE RESPIRATORY DISTRESS NOTED, ABD SOFT, ROUND, TENDERNESS UPON PALPATION (CRAMPING 03/14), NORMOACTIVE BOWEL SOUNDS X 4 QUADS, LAST BM 12/03/18, DIARRHEA. VOIDS FREELY BUT W/ C/O BURNING UPON URINATION. GENERALIZED WEAKNESS, CONTRACTURE TO LEFT KNEE, USES W/C AT HOME AND AT BEDSIDE, FALL RISK PROTOCOL IN PLACE. REDNESS TO BUTTOCKS AREA AND MID BACK, SCABS TO BILATERAL KNEES AND MEDIAL RIGHT FOOT. IV SITE RFA 22G, CDI. ORIENTED PT TO ROOM, BED CONTROLS, CALL LIGHT SYSTEM. PADDED SIDE RAILS UP X 2, BED IN LOW POSITION. WILL ENDORSE TO REJI LOBO.
[2018-12-03 23:22] VITALS: BP 143/77
--- NOTE | 2018-12-03 23:40 | NUR ---
PAGED [facility] ABOUT OBTAINING ORDERS. DR AGUIAR COVERING PHYSICIAN. WILL WAIT FOR CALL BACK.
--- NOTE | 2018-12-04 01:25 | NUR ---
MEDICATED PT WITH AMBIEN PO FOR INSOMNIA, ALL COMFORT AND SAFETY MEASURES PROVIDED FOR, CALL LIGHT WIHTIN REACH, BED IN LOWEST POSITIONM WILL CONTINUE TO MONITOR.
--- NOTE | 2018-12-04 05:00 | NUR ---
PT RESTED IN INTERVALS DURING SHIFT AFTER ADMISSION, NO ACUTE CHANGES OCCURRING OVERNIGHT. PT HAVING LOOSE STOOL, REPORTING INTERMITTENT ABD CRAMPING. PT DENIES N/V/D. REMAINS AFEBRILE. IV SITE PATENT, NO REDNESS, SWELLING OR PAIN NOTED. PT RECEIVED MAG RIDER, TOLERATED WELL. ALL COMFORT AND SAFETY MEASURES PROVIDED FOR, CALL LIGHT WITHIN REACH, BED IN LOWEST POSITION, WILL CONTINUE TO MONITOR.
[2018-12-04 06:05] VITALS: BP 145/82
--- NOTE | 2018-12-04 08:00 | NUR ---
ALERT AND ORIENTED. BREATHING FREELY ON RA. DENIES ANY PAIN AT THIS TIME. TELE # 5 NSR. / NS INFUSING 65 CC HOUR TO RT FA. ASSISTED WITH SETTING UP BREAKFAST TRAY. URINAL WITHIN REACH. BED IN LOW POSITION. CALL LIGHT WITHIN REACH. WATER PITCHER WITHIN REACH.
[2018-12-04 08:28] VITALS: BP 157/84
[2018-12-04 08:38] LABS: microscopic required? NO
[2018-12-04 08:44] LABS: urine erythrocyte NEGATIVE (NEGATIVE)
[2018-12-04 08:44] LABS: BASOPHIL % 0.4 % (0-2); PLATELET COUNT 382 x10^3mcL (130-400); RED CELL DISTRIBUTION WIDTH 14.1 % (11.5-14.5)
[2018-12-04 08:47] LABS: ALKALINE PHOSPHATASE 130 U/L (46-116); ALT/SGPT 40 U/L (16-63); AST/SGOT 31 U/L (15-37); BILIRUBIN TOTAL 0.44 mg/dL (0.20-1.00); CALCIUM 8.5 mg/dL (8.5-10.1); CARBON DIOXIDE 26.4 mmol/L (21-32); CHLORIDE SERUM 104 mmol/L (98-107); CREATININE SERUM 1.8 mg/dL (0.7-1.3); GLUCOSE SERUM 147 mg/dL (74-106); POTASSIUM SERUM 4.1 mmol/L (3.5-5.1); SODIUM SERUM 138 mmol/L (136-145); TOTAL PROTEIN, SERUM 6.3 g/dL (6.4-8.2)
[2018-12-04 08:49] LABS: ALBUMIN 2.5 g/dL (3.4-5.0)
[2018-12-04 09:25] LABS: AMPHETAMINE QUAL UR NONE DETECTED (See below)
--- NOTE | 2018-12-04 11:11 | NUR ---
LEFT AMA. SIGNED AMA FORM. IV DC'D TELE # 5 RETURNED TO TELE STATION. LEFT VIA HIS OWN WHEELCHAIR, RIDE WAITING IN LOBBY ACCORDING TO PT.
== END 2018-12-04 11:23 | disposition left against medical advice (07) | DRG 641 ==
LOC: ED 19:26 → DU 21:55
PROVIDERS: Emergency Medicine; ADMIT Internal Medicine
DX: E86.0 Dehydration (principal); R19.7 Diarrhea, unspecified; M10.9 Gout, unspecified; F41.8 Other specified anxiety disorders; G89.29 Other chronic pain; M54.5 Low back pain; G40.909 Epilepsy, unspecified, not intractable, without status epilepticus; J45.909 Unspecified asthma, uncomplicated; I12.9 Hypertensive chronic kidney disease with stage 1 through stage 4 chronic kidney disease, or unspecified chronic kidney disease; N18.9 Chronic kidney disease, unspecified
CPT/HCPCS: J2185; J3475; J7030

== ENCOUNTER 2019-02-04 01:19 | Emergency (ER) | payer OTHER ==
[~2019-02-04] VITALS: Ht 177.8 cm; Wt 88.5 kg
[2019-02-04 01:26] VITALS: Ht 177.8 cm; Wt 88.5 kg
[2019-02-04 02:25] VITALS: BP 160/73
== END 2019-02-04 02:25 | disposition left against medical advice (07) ==
LOC: ED 01:19
DX: M25.511 Pain in right shoulder (principal); I10 Essential (primary) hypertension; G89.29 Other chronic pain; F41.9 Anxiety disorder, unspecified; F32.9 Major depressive disorder, single episode, unspecified; Z98.890 Other specified postprocedural states; W05.0XXA Fall from non-moving wheelchair, initial encounter; Y93.89 Activity, other specified; Y92.89 Other specified places as the place of occurrence of the external cause; Y99.8 Other external cause status

== ENCOUNTER 2019-02-14 08:56 | Emergency (ER) | payer OTHER ==
[~2019-02-14] VITALS: Ht 177.8 cm; Wt 90.7 kg
[2019-02-14 09:03] VITALS: Ht 177.8 cm; Wt 90.7 kg
[2019-02-14 15:17] VITALS: BP 146/91
== END 2019-02-14 15:17 | disposition home or self-care (01) ==
LOC: ED 08:56
DX: S43.401A Unspecified sprain of right shoulder joint, initial encounter (principal); S73.102A Unspecified sprain of left hip, initial encounter; M25.562 Pain in left knee; F17.200 Nicotine dependence, unspecified, uncomplicated; I10 Essential (primary) hypertension; G89.29 Other chronic pain; F41.9 Anxiety disorder, unspecified; F32.9 Major depressive disorder, single episode, unspecified; Z98.890 Other specified postprocedural states; W05.0XXA Fall from non-moving wheelchair, initial encounter; Y93.9 Activity, unspecified; Y92.89 Other specified places as the place of occurrence of the external cause; Y99.8 Other external cause status
CPT/HCPCS: 99406; J2270; Q0162